=== PATIENT | male | born 1960 | race Caucasian/White ===

== ENCOUNTER → 2017-07-31 | Day surgery (SDC) | payer OTHER ==
[~2017-07-31] VITALS: Ht 177.8 cm; Wt 72.6 kg
--- NOTE | ~2017-07-31 | O ---
[place], [place] OPERATIVE NOTE NAME: MIGUELINA DOE UNIT #: [id number] ROOM: DOCTOR: MORENO PELAYO MD BIRTHDATE: [birth year] DOS: GASTROENDOSCOPIC REPORT INDICATIONS: A 57-year-old patient who has presented with chief complaint of colonic concern for screening. ALLERGIES: No known medication. PAST MEDICAL HISTORY: Unremarkable. PAST SURGICAL HISTORY: Podiatric. SOCIAL HISTORY: Smoker of marijuana, cannabis, nonalcohol consumer. PROCEDURE: Todays' procedure part of investigation is colonoscopy plus 4 polypectomy from rectal pouch. PREMEDICATION: Versed and Diprivan. SCOPE: Olympus forward-viewing colonoscope 10L video. REPORT: After putting the patient in the left lateral position and after application of lubricant to the scope, the scope was introduced. Thereafter, under direct visualization, I advanced through the length of colon without difficulty. Base of the cecum explored, appendiceal orifice identified and ileocecal valve was defined. Scope was gradually withdrawn back to the rectal pouch. Four sessile polypoid lesion, averaging 3.5 mm each with piecemeal polypectomy removed. Samples recovered. The patient extubated, tolerated the procedure well. IMPRESSION: Four colonic sessile polyp in the rectal pouch, status post piecemeal polypectomy. PLAN: High fiber fruit diet. ACTIVITY: Ad ignacio. FOLLOWUP: As outpatient routinely with you in office, p.r.n. visit with us in [facility]. I thank you very much indeed for your kind referral. Sincerely yours, [place], [place] OPERATIVE NOTE NAME: MIGUELINA DOE UNIT #: [id number] ROOM: DOCTOR: MORENO PELAYO MD BIRTHDATE: [birth year] MORENO PELAYO MD CM:OPRECORD:OPERATIVE NOTE [id number] KATIE PELAYO MD 07/31/17 1528 interface
[2017-07-31 12:20] VITALS: BP 115/73
[2017-07-31 14:36] VITALS: BP 94/47
[2017-07-31 14:50] VITALS: BP 97/65
[2017-07-31 14:59] VITALS: BP 103/67
== END | disposition home or self-care (01) ==
LOC: SDC 07-28 11:00
DX: Z12.11 Encounter for screening for malignant neoplasm of colon (principal); D12.8 Benign neoplasm of rectum; F12.20 Cannabis dependence, uncomplicated

== ENCOUNTER 2020-05-09 10:30 | Emergency (ER) | payer SELFPAY ==
[~2020-05-09] VITALS: Ht 177.8 cm; Wt 86.2 kg
[2020-05-09 11:59] LABS: BASO % 0.6 % (0.0-1.0); EOS # 0.1 10*3/uL (0.0-0.4); EOS % 0.9 % (1.0-4.0); HEMATOCRIT 38.9 % (42.0-52.0); LYMPH # 1.1 10*3/uL (1.3-4.4); LYMPH % 21.5 % (27.0-41.0); MEAN CELL VOLUME 91.7 fl (80.0-94.0); MEAN CORPUSCULAR HGB 30.2 pg (27.0-31.0); MEAN CORPUSCULAR HGB CONC 32.9 g/dl (33.0-37.0); MEAN PLATELET VOLUME 8.8 fl (9.6-12.3); MONO # 0.4 10*3/uL (0.1-1.0); NEUT # 3.7 10*3/uL (2.3-7.9); NEUT % 69.4 % (47.0-73.0); PLATELET COUNT AUTOMATED 214 10*3/uL (130-400); RED BLOOD COUNT 4.24 10*6/uL (4.50-5.90); RED CELL DISTRI WIDTH 14.1 % (0-14.5); WHITE BLOOD COUNT 5.3 10*3/uL (4.8-10.8)
[2020-05-09 12:17] LABS: ALBUMIN 3.4 gm/dl (3.1-4.5); ALKALINE PHOSPHATASE 60 U/L (45-117); BUN 14 mg/dl (7-24); CHLORIDE 107 mmol/L (98-107); CREATININE 1.32 mg/dL (0.70-1.30); POTASSIUM 4.2 mmol/L (3.5-5.1); SGOT/AST 24 IU/L (3-35); SGPT/ALT 49 U/L (12-78); SODIUM 138 mmol/L (136-145); TOTAL PROTEIN 7.1 gm/dL (6.4-8.2)
[2020-05-09] MEDS ORDERED: CEPHALEXIN500 M1 PO (12:45)
== END 2020-05-09 12:46 | disposition home or self-care (01) ==
LOC: ED 10:30
PROVIDERS: Nurse Practitioner Family
DX: L03.116 Cellulitis of left lower limb (principal)